=== PATIENT | male | born 1940 | race African-American/Black ===

== ENCOUNTER 2023-08-09 13:50 | Outpatient (CLI) | payer MEDICARE | END 2023-08-09 13:51 | disposition home or self-care (01) | LOC: BICRAD 13:50 | PROVIDERS: ATTEND Internal Medicine Rheumatology | DX: M05.79 Rheumatoid arthritis with rheumatoid factor of multiple sites without organ or systems involvement (principal); M32.9 Systemic lupus erythematosus, unspecified; R06.02 Shortness of breath; J92.9 Pleural plaque without asbestos; J98.4 Other disorders of lung | CPT/HCPCS: 71046 ==